=== PATIENT | female | born 1965 | race Caucasian/White ===

== ENCOUNTER → 2019-04-27 | Outpatient (CLI) | payer BC | LOC: SJCVCIMAG 10:23 | DX: I35.8 Other nonrheumatic aortic valve disorders (principal); I11.9 Hypertensive heart disease without heart failure ==

== ENCOUNTER → 2020-07-14 | Outpatient (CLI) | payer BC | LOC: SJCVCIMAG 09:09 | PROVIDERS: ATTEND Internal Medicine Cardiovascular Disease | DX: I08.3 Combined rheumatic disorders of mitral, aortic and tricuspid valves (principal); I27.20 Pulmonary hypertension, unspecified ==